=== PATIENT | female | born 1990 | race Caucasian/White ===

== ENCOUNTER 2017-03-23 23:19 | Emergency (ER) | payer MEDICAID ==
[2017-03-24 00:19] LABS: BASOPHIL % 0.7 % (0-2); PLATELET COUNT 205 x10^3mcL (130-400); RED CELL DISTRIBUTION WIDTH 13.8 % (11.5-14.5)
[2017-03-24 00:33] LABS: CARBON DIOXIDE 28 mmol/L (21-32); CHLORIDE SERUM 105 mmol/L (98-107); CREATININE SERUM 0.8 mg/dL (0.6-1.0); GFR1 > 60 mL/min; GLUCOSE SERUM 102 mg/dL (74-106); POTASSIUM SERUM 3.5 mmol/L (3.5-5.1); SODIUM SERUM 142 mmol/L (136-145)
[2017-03-24 00:34] LABS: CALCIUM 8.5 mg/dL (8.5-10.1)
[2017-03-24 00:36] LABS: ALKALINE PHOSPHATASE 77 U/L (46-116); ALT/SGPT 36 U/L (14-59); AST/SGOT 11 U/L (15-37); BILIRUBIN TOTAL 0.2 mg/dL (0.20-1.00); TOTAL PROTEIN, SERUM 7.5 g/dL (6.4-8.2)
[2017-03-24 00:56] LABS: CK-MB < 0.5 ng/mL (0-3.6); CREATINE KINASE 64 U/L (26-192)
[2017-03-24 01:43] VITALS: BP 109/84
== END 2017-03-24 01:43 | disposition home or self-care (01) ==
LOC: ED 23:19
PROVIDERS: Emergency Medicine
DX: T75.4XXA Electrocution, initial encounter (principal); W86.0XXA Exposure to domestic wiring and appliances, initial encounter; Z79.899 Other long term (current) drug therapy

== ENCOUNTER 2017-05-28 01:27 | Emergency (ER) | payer MEDICAID ==
[~2017-05-28] VITALS: Ht 152.4 cm; Wt 67.6 kg
[2017-05-28 02:57] VITALS: BP 107/87
== END 2017-05-28 02:57 | disposition home or self-care (01) ==
LOC: ED 01:27
DX: K20.9 Esophagitis, unspecified (principal); R07.89 Other chest pain; Z87.19 Personal history of other diseases of the digestive system

== ENCOUNTER 2018-02-10 11:08 | Emergency (ER) | payer MEDICAID ==
[~2018-02-10] VITALS: Ht 152.4 cm; Wt 63.5 kg
[2018-02-10 11:16] VITALS: Ht 152.4 cm; Wt 63.5 kg
[2018-02-10 12:21] LABS: BASOPHIL % 0.6 % (0-2); PLATELET COUNT 196 x10^3mcL (130-400); RED CELL DISTRIBUTION WIDTH 14.3 % (11.5-14.5)
[2018-02-10 12:36] LABS: CALCIUM 8.7 mg/dL (8.5-10.1); CARBON DIOXIDE 28.8 mmol/L (21-32); CHLORIDE SERUM 102 mmol/L (98-107); CREATININE SERUM 0.8 mg/dL (0.6-1.0); GFR1 > 60 mL/min; GLUCOSE SERUM 87 mg/dL (74-106); SODIUM SERUM 138 mmol/L (136-145)
[2018-02-10 13:27] VITALS: BP 101/73
== END 2018-02-10 13:27 | disposition home or self-care (01) ==
LOC: ED 11:08
PROVIDERS: Emergency Medicine
DX: R42 Dizziness and giddiness (principal); R19.7 Diarrhea, unspecified; R51 Headache
CPT/HCPCS: J2405

== ENCOUNTER 2018-08-03 03:55 | Emergency (ER) | payer MEDICAID ==
[~2018-08-03] VITALS: Ht 157.5 cm; Wt 64.4 kg
[2018-08-03 04:02] VITALS: Ht 157.5 cm; Wt 64.4 kg
[2018-08-03 04:54] LABS: CALCIUM 8.3 mg/dL (8.5-10.1); CARBON DIOXIDE 22.7 mmol/L (21-32); CHLORIDE SERUM 104 mmol/L (98-107); CREATININE SERUM 0.7 mg/dL (0.6-1.0); GFR1 > 60 mL/min; GLUCOSE SERUM 91 mg/dL (74-106); POTASSIUM SERUM 3.2 mmol/L (3.5-5.1); SODIUM SERUM 138 mmol/L (136-145)
[2018-08-03 05:06] LABS: ALBUMIN 3.6 g/dL (3.4-5.0); ALKALINE PHOSPHATASE 64 U/L (46-116); ALT/SGPT 73 U/L (14-59); AMYLASE 63 U/L (25-115); AST/SGOT 23 U/L (15-37); BILIRUBIN TOTAL 0.46 mg/dL (0.20-1.00); LIPASE 164 IU/L (73-393); TOTAL PROTEIN, SERUM 7.7 g/dL (6.4-8.2)
[2018-08-03 05:16] LABS: BASOPHIL % 0.5 % (0-2); PLATELET COUNT 186 x10^3mcL (130-400); RED CELL DISTRIBUTION WIDTH 14.2 % (11.5-14.5)
[2018-08-03 07:45] VITALS: BP 102/67
== END 2018-08-03 07:45 | disposition home or self-care (01) ==
LOC: ED 03:55
PROVIDERS: Emergency Medicine
DX: O9A.211 Injury, poisoning and certain other consequences of external causes complicating pregnancy, first trimester (principal); O21.0 Mild hyperemesis gravidarum; Z3A.13 13 weeks gestation of pregnancy; Z87.19 Personal history of other diseases of the digestive system
CPT/HCPCS: J2405; J2765; J7030

== ENCOUNTER 2018-08-24 15:49 | Emergency (ER) | payer MEDICAID ==
[~2018-08-24] VITALS: Ht 154.9 cm; Wt 64.9 kg
[2018-08-24 15:53] VITALS: Ht 154.9 cm; Wt 64.9 kg
[2018-08-24 16:35] LABS: BASOPHIL % 0.6 % (0-2); PLATELET COUNT 195 x10^3mcL (130-400)
[2018-08-24 16:36] LABS: RED CELL DISTRIBUTION WIDTH 14.9 % (11.5-14.5)
[2018-08-24 16:41] LABS: CALCIUM 8.8 mg/dL (8.5-10.1); CARBON DIOXIDE 22.9 mmol/L (21-32); CHLORIDE SERUM 101 mmol/L (98-107); CREATININE SERUM 0.6 mg/dL (0.6-1.0); GFR1 > 60 mL/min; GLUCOSE SERUM 86 mg/dL (74-106); POTASSIUM SERUM 3.2 mmol/L (3.5-5.1); SODIUM SERUM 134 mmol/L (136-145)
[2018-08-24 16:45] LABS: ALBUMIN 3.6 g/dL (3.4-5.0); ALKALINE PHOSPHATASE 61 U/L (46-116); ALT/SGPT 64 U/L (14-59); AST/SGOT 25 U/L (15-37); BILIRUBIN TOTAL 0.2 mg/dL (0.20-1.00); LIPASE 171 IU/L (73-393); TOTAL PROTEIN, SERUM 7.9 g/dL (6.4-8.2)
[2018-08-24 18:19] VITALS: BP 122/63
== END 2018-08-24 18:19 | disposition home or self-care (01) ==
LOC: ED 15:49
PROVIDERS: Emergency Medicine
DX: O99.612 Diseases of the digestive system complicating pregnancy, second trimester (principal); F41.9 Anxiety disorder, unspecified; K92.89 Other specified diseases of the digestive system; Z3A.16 16 weeks gestation of pregnancy; Z87.19 Personal history of other diseases of the digestive system
CPT/HCPCS: J2765; J3490; J7030

== ENCOUNTER 2018-11-10 09:34 | Emergency (ER) | payer MEDICAID ==
[~2018-11-10] VITALS: Ht 157.5 cm; Wt 71.7 kg
[2018-11-10 09:44] VITALS: BP 122/78; Ht 157.5 cm; Wt 71.7 kg
[2018-11-10 10:23] LABS: BASOPHIL % 0.4 % (0-2); PLATELET COUNT 210 x10^3mcL (130-400)
[2018-11-10 10:27] LABS: RED CELL DISTRIBUTION WIDTH 14.7 % (11.5-14.5)
[2018-11-10 10:28] LABS: CALCIUM 8.2 mg/dL (8.5-10.1); CARBON DIOXIDE 23.6 mmol/L (21-32); CHLORIDE SERUM 103 mmol/L (98-107); CREATININE SERUM 0.6 mg/dL (0.6-1.0); GFR1 > 60 mL/min; GLUCOSE SERUM 94 mg/dL (74-106); POTASSIUM SERUM 3.4 mmol/L (3.5-5.1); SODIUM SERUM 137 mmol/L (136-145)
[2018-11-10 10:30] LABS: microscopic required? YES; urine erythrocyte TRACE (NEGATIVE)
[2018-11-10 10:33] LABS: ALKALINE PHOSPHATASE 99 U/L (46-116); ALT/SGPT 26 U/L (14-59); AST/SGOT 13 U/L (15-37); BILIRUBIN TOTAL 0.24 mg/dL (0.20-1.00); TOTAL PROTEIN, SERUM 7.4 g/dL (6.4-8.2)
== END 2018-11-10 12:43 | disposition home or self-care (01) ==
LOC: ED 09:34
PROVIDERS: Emergency Medicine
DX: O23.592 Infection of other part of genital tract in pregnancy, second trimester (principal); F41.9 Anxiety disorder, unspecified; R04.0 Epistaxis; Z3A.27 27 weeks gestation of pregnancy; Z87.19 Personal history of other diseases of the digestive system
CPT/HCPCS: 36415

== ENCOUNTER 2020-03-03 08:13 | Emergency (ER) | payer MEDICAID ==
[~2020-03-03] VITALS: Ht 157.5 cm; Wt 75.3 kg
[2020-03-03 08:24] VITALS: Ht 157.5 cm; Wt 75.3 kg
[2020-03-03 09:39] LABS: UA SPECIFIC GRAVITY >=1.030 (1.005-1.035); microscopic required? YES; urine erythrocyte 2+ (NEGATIVE)
[2020-03-03 10:45] VITALS: BP 119/53
== END 2020-03-03 10:45 | disposition home or self-care (01) ==
LOC: ED 08:13
PROVIDERS: Emergency Medicine
DX: N10 Acute pyelonephritis (principal); Z20.828 Contact with and (suspected) exposure to other viral communicable diseases

== ENCOUNTER 2021-01-10 08:10 | Emergency (ER) | payer MEDICAID, SELFPAY ==
[~2021-01-10] VITALS: Ht 157.5 cm; Wt 77.6 kg
[2021-01-10 08:17] VITALS: Ht 157.5 cm; Wt 77.6 kg
[2021-01-10 11:37] VITALS: BP 112/64
== END 2021-01-10 11:37 | disposition home or self-care (01) ==
LOC: ED 08:10
DX: O99.511 Diseases of the respiratory system complicating pregnancy, first trimester (principal); J06.9 Acute upper respiratory infection, unspecified; M54.6 Pain in thoracic spine; Z3A.01 Less than 8 weeks gestation of pregnancy; Z20.822 Contact with and (suspected) exposure to COVID-19
CPT/HCPCS: U0003